=== PATIENT | female | born 1990 | race African-American/Black ===

== ENCOUNTER 2017-01-08 23:20 | Emergency (ER) | payer MEDICAID, OTHER ==
[~2017-01-08] VITALS: Ht 162.6 cm; Wt 163.3 kg
[~2017-01-08 23:20] MED LIST: ALBUTEROL SULF8.5 GM INH; ALBUTEROL2.5 MG/3 M HHN; AZITHROMYCIN250 MG ORAL; GUAIFENESIN-CO118 M1 ORAL; HYDROCHLOROTHIA25 MG ORAL; PREDNISONE20 MG ORAL; SINGULAIR10 MG ORAL; VASERETIC1 EA ORAL; ZITHROMAX250 MG ORAL; ZITHROMAX250 MG PO
[2017-01-08 23:40] VITALS: BP 161/104
[2017-01-08] MEDS ORDERED: HYDROmorphone 1mg/ml Carpuject IVP ONE (23:45)
[2017-01-09 00:17] LABS: BASOPHILS % (AUTO) 0.4 % (0.0-2.0); EOSINOPHILS % (AUTO) 0.2 % (0.0-3.0); LYMPHOCYTES % (AUTO) 23.2 % (20.0-45.0); MEAN CORPUSCULAR HEMOGLOBIN 25.7 PG (27.0-31.0); MEAN CORPUSCULAR HGB CONC 31.9 G/DL (32.0-36.0); MEAN CORPUSCULAR VOLUME 81 FL (80-99); MEAN PLATELET VOLUME 6.8 FL (6.5-10.1); MONOCYTES % (AUTO) 4.7 % (1.0-10.0); NEUTROPHILS % (AUTO) 71.5 % (45.0-75.0); PLATELET COUNT 350 K/UL (150-450); RED BLOOD COUNT 4.88 M/UL (4.20-5.40); RED CELL DISTRIBUTION WIDTH 14.6 % (11.6-14.8); WHITE BLOOD COUNT 12.9 K/UL (4.8-10.8)
[2017-01-09 00:17] LABS: APPEARANCE,URINE CLOUDY; KETONES,URINE 1+ (NEGATIVE); LEUKOCYTE ESTERASE ,URINE 3+ (NEGATIVE); NITRITE,URINE NEGATIVE (NEGATIVE); PH,URINE 5 (4.5-8.0); PROTEIN,URINE 2+ (NEGATIVE); UROBILINOGEN,URINE NORMAL MG/DL (0.0-1.0)
[2017-01-09 00:30] LABS: BACTERIA,URINE MODERATE /HPF; MUCUS,URINE MODERATE /LPF (NONE/OCC); RBC,URINE 40-60 /HPF (0 - 2); SQUAMOUS EPITHELIAL CELL,UR MODERATE /LPF (NONE/OCC); WBC,URINE 60-80 /HPF (0 - 2)
[2017-01-09 00:30] LABS: ALANINE AMINOTRANSFERASE 20 U/L (12-78); ALBUMIN/GLOBULIN RATIO 0.7 (1.0-2.7); ANION GAP 10 mmol/L (5-15); ASPARTATE AMINO TRANSFERASE 16 U/L (15-37); CALCIUM 9.5 MG/DL (8.5-10.1); CARBON DIOXIDE 25 MMOL/L (21-32); CHLORIDE 105 MMOL/L (98-107); CREATININE 1.2 MG/DL (0.55-1.30); GLOMERULAR FILTRATION RATE > 60 mL/min (>60); LIPASE 453 U/L (73-393); POTASSIUM 3.9 MMOL/L (3.5-5.1); SODIUM 140 MMOL/L (136-145); TOTAL PROTEIN 8.5 G/DL (6.4-8.2)
[2017-01-09 00:31] LABS: ICTOTEST NEGATIVE; TRICHOMONAS,URINE FEW /HPF
--- NOTE | 2017-01-09 01:07 | Emergency Room Report ---
History of Present Illness General Chief Complaint: Abdominal Pain Source: Patient Present Illness HPI Is a 26-year-old female with no significant past medical history. She presents with chief complaint of nominal pain. Onset today. Pain is right upper quadrant going to her back. She thought this may have been secondary to taking Tylenol #3 for her tooth infection. Has nausea but no vomiting. No diarrhea. Pain is 9/10. Worse with eating. Denies any other complaint. Allergies: Coded Allergies: IBUPROFEN (Verified Allergy, Mild, sob, 11/14/12) NAPROXEN (Verified Allergy, Mild, sob, 11/14/12) PENICILLINS (Verified Allergy, Mild, rash, 11/14/12) Patient History Past Medical History: see triage record, old chart reviewed Past Surgical History: none Pertinent Family History: none Social History: Denies: smoking Last Menstrual Period: 2 weeks ago Now: No Immunizations: other Reviewed Nursing Documentation: PMH: Agreed, PSxH: Agreed Nursing Documentation-PMH Hx Cardiac Problems: No - ULCERS, CHRONIC HEADACHE Hx Hypertension: Yes Hx Asthma: Yes Hx Gastrointestinal Problems: Yes - Ulcer. polycystic ovarian syndrome Review of Systems Eye: Denies: eye pain, blurred vision ENT: Denies: ear pain, nose congestion, throat swelling Respiratory: Denies: cough, shortness of breath Cardiovascular: Denies: chest pain, palpitations Gastrointestinal: Reports: abdominal pain, nausea, Denies: diarrhea, vomiting Musculoskeletal: Denies: back pain, joint pain Skin: Denies: rash Neurological: Denies: headache, numbness Endocrine: Denies: increased thirst, increased urine Hematologic/Lymphatic: Denies: easy bruising All Other Systems: negative except mentioned in HPI Physical Exam Vital Signs Date Time Temp Pulse Resp B/P (MAP) Pulse Ox O2 Delivery O2 Flow Rate FiO2 01/08/17 23:25 98.4 111 20 150/103 98 Room Air vitals with tachycardia Sp02 EP Interpretation: reviewed, normal General Appearance: well appearing, no apparent distress, alert, obese Head: normocephalic, atraumatic Eyes: bilateral eye PERRL, bilateral eye EOMI ENT: hearing grossly normal, normal pharynx, other - no abscess on dental exam Neck: full range of motion, supple, no meningismus Respiratory: chest non-tender, lungs clear, normal breath sounds Cardiovascular #1: regular rate, rhythm, no murmur Gastrointestinal: normal bowel sounds, no mass, no organomegaly, no bruit, non- distended, tenderness - Right upper quadrant Musculoskeletal: back normal, gait/station normal, normal range of motion Psychiatric: mood/affect normal Skin: warm/dry Medical Decision Making Diagnostic Impression: Primary Impression: Cholelithiasis Qualified Codes: K80.20 - Calculus of gallbladder without cholecystitis without obstruction Additional Impression: Trichomonas vaginitis ER Course Patient with right upper quadrant pain. Pain is controlled now. She never had any pain in the left upper quadrant. Labs unremarkable. No evidence of acute abdomen. We'll discharge home. Trichomonas treated. She is currently taking clindamycin for her dental pain. Will hold off further treatment for UTI. Last Vital Signs Date Time Temp Pulse Resp B/P (MAP) Pulse Ox O2 Delivery O2 Flow Rate FiO2 01/08/17 23:40 98.4 94 20 161/104 98 Room Air Status: improved Disposition: HOME, SELF-CARE Condition: Stable Scripts Hydrocodone/Acetaminophen 5-325* (HYDROCODONE/ACETAMINOPHEN 5-325*) 1 Each Tablet 1 TAB ORAL Q6H Y for For Pain, #20 TAB 0 Refills Prov: NADIYA WELCH M.D. 01/09/17 Referrals: [facility],REFERRING (PCP) Additional Instructions: Continue with antibiotics. Have your partner is treated for STD. Followup with your DrLisandro in 2-3 days. Return if symptom worsen. NADIYA WELCH M.D. Jan 09, 2017 01:07
[2017-01-09] MEDS ORDERED: cefTRIAXone 1 GM in NS 55 ML IVPB ONE (01:15)
[2017-01-09 01:40] VITALS: BP 155/81
[2017-01-09] MEDS ORDERED: metroNIDAZOLE 500mg tab ORAL ONE (02:00)
[2017-01-09] MEDS ORDERED: HYDROCODON-ACE1 EA15 ORAL (02:01)
[2017-01-09 02:09] VITALS: BP 155/81
--- NOTE | 2017-01-09 08:47 | Diagnostic Imaging Report ---
Indication: Abdominal pain Technique: Spiral acquisitions obtained through the abdomen and pelvis. No oral contrast utilized, per emergency room physician request No IV contrast utilized, per emergency room physician request. Multiplanar reconstructions were generated. Total dose length product 1374 mGycm. CTDIvol(s) 26 mGy. Dose reduction achieved using automated exposure control Comparison: Contrast study dated 02/09/2010 Findings: The appendix is normal. No evidence of diverticulosis or diverticulitis. No small bowel distention. No free or loculated intraperitoneal air or fluid is evident. Distal esophagus, stomach, duodenum are unremarkable. Again demonstrated is a tiny fat-containing umbilical hernia. Nonspecific prominent right lower quadrant lymph nodes are again demonstrated, unchanged Lack of IV contrast limits assessment of the solid organs. Gallbladder contents are slightly higher in attenuation than on the previous study. The liver, bile ducts, pancreas, spleen, adrenals, kidneys are all unremarkable. There is a small accessory splenule. No retroperitoneal or mesenteric mass or adenopathy. No pelvic mass or adenopathy. The included lung bases are clear. The bones are unremarkable Impression: Possible gallbladder sludge Otherwise essentially unremarkable exam. Incidental finding of tiny fat-containing umbilical hernia This agrees with the preliminary interpretation provided overnight by [facility]erad[facility] service. The CT scanner at [facility] is accredited by the [employer] and the scans are performed using protocols designed to limit radiation exposure to as low as reasonably achievable to attain images of sufficient resolution adequate for diagnostic evaluation.
== END 2017-01-09 02:09 | disposition home or self-care (01) ==
LOC: EMR 23:48
DX: K80.20 Calculus of gallbladder without cholecystitis without obstruction (principal); A59.01 Trichomonal vulvovaginitis; R10.11 Right upper quadrant pain; Z88.6 Allergy status to analgesic agent; Z88.0 Allergy status to penicillin; I10 Essential (primary) hypertension; J45.909 Unspecified asthma, uncomplicated; R11.0 Nausea; R51 Headache
CPT/HCPCS: 36415; 74176; 80053; 81003; 81025; 83690; 85025; 87086; 96361; 96374; 96375; 99284; J0696; J1170; J2405

== ENCOUNTER 2017-12-26 19:40 | Emergency (ER) | payer MEDICAID, OTHER ==
[~2017-12-26] VITALS: Ht 162.6 cm; Wt 163.3 kg
[~2017-12-26 19:40] MED LIST changes: +HYDROCODON-ACE1 EA15 ORAL
[2017-12-26 19:55] VITALS: BP 149/84
--- NOTE | 2017-12-26 20:12 | Emergency Room Report ---
History of Present Illness General Chief Complaint: Flu Like Symptoms Source: Patient Present Illness HPI Patient present with complaints of cough sore throat runny nose symptoms ongoing since Friday Patient also has some back pain with increased cough denies any chest pain patient reports that she thinks her asthma might be flaring up as well Denies any dysuria frequency denies any posterior neck pain denies any photophobia denies any recent travel Allergies: Coded Allergies: IBUPROFEN (Verified Allergy, Mild, sob, 11/14/12) NAPROXEN (Verified Allergy, Mild, sob, 11/14/12) PENICILLINS (Verified Allergy, Mild, rash, 11/14/12) Patient History Past Medical History: see triage record Pertinent Family History: none Last Menstrual Period: 12/11/17 Now: No Reviewed Nursing Documentation: PMH: Agreed; PSxH: Agreed Nursing Documentation-PMH Past Medical History: No History, Except For Hx Cardiac Problems: No - ULCERS, CHRONIC HEADACHE Hx Hypertension: Yes Hx Asthma: Yes Hx Gastrointestinal Problems: Yes - Ulcer. polycystic ovarian syndrome, gallstones Review of Systems All Other Systems: negative except mentioned in HPI Physical Exam Vital Signs Date Time Temp Pulse Resp B/P (MAP) Pulse Ox O2 Delivery O2 Flow Rate FiO2 12/26/17 19:45 98.6 113 18 149/84 98 Room Air 98.6 Sp02 EP Interpretation: reviewed, normal General Appearance: well appearing, no apparent distress Head: normocephalic, atraumatic Eyes: bilateral eye PERRL, bilateral eye EOMI ENT: hearing grossly normal, TMs + canals normal, uvula midline, pharyngeal erythema Neck: full range of motion, supple, no meningismus, no bony tend Respiratory: lungs clear, normal breath sounds, no rhonchi, no respiratory distress, no retraction, no accessory muscle use Cardiovascular #1: normal peripheral pulses, regular rate, rhythm, no edema, no gallop, no JVD, no murmur Gastrointestinal: normal bowel sounds, non tender, soft, no mass, no organomegaly, non-distended, no guarding, no hernia, no pulsatile mass, no rebound Genitourinary: no CVA tenderness Musculoskeletal: normal inspection Neurologic: oriented x3, responsive, 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, motor strength/ tone normal, sensory intact Psychiatric: mood/affect normal Skin: normal color, no rash, warm/dry, palpation normal Lymphatic: normal inspection, no adenopathy Medical Decision Making Diagnostic Impression: Primary Impression: Pharyngitis ER Course Patient presents with symptoms consistent with upper respiratory infection given the throat infection as well however patient does have findings consistent with pharyngitis as well Given the duration of symptoms the discomfort Patient had received breathing treatment here feeling significantly improved And will be discharged for close outpatient follow-up Last Vital Signs Date Time Temp Pulse Resp B/P (MAP) Pulse Ox O2 Delivery O2 Flow Rate FiO2 12/26/17 19:45 98.6 113 18 149/84 98 Room Air 98.6 Status: improved Disposition: HOME, SELF-CARE Condition: Stable Scripts Dextromethorphan Hb/Doxylamine (ROBITUSSIN NIGHTTIME COUGH DM) 237 Ml Liquid 10 ML PO QHS for 5 Days, ML Prov: Dileep Santos DO 12/26/17 Acetaminophen (Tylenol) 325 Mg Tablet 650 MG ORAL Q8HR PRN for Prn Pain/Headache/Temp > 101, #15 TAB 0 Refills Prov: Dileep Santos DO 12/26/17 Azithromycin (ZITHROMAX) 500 Mg Tablet 500 MG ORAL DAILY for 5 Days, TAB Prov: Dileep Santos DO 12/26/17 Additional Instructions: Patient is provided with the discharge instructions notified to follow up with primary doctor in the next 2-3 days otherwise return to the er with any worsening symptoms. Please note that this report is being documented using [employer] technology. This can lead to erroneous entry secondary to incorrect interpretation by the dictating instrument. Dileep Santos DO Dec 26, 2017 20:12
[2017-12-26] MEDS ORDERED: Albuterol ud Inhalation HHN ONE (20:15)
[2017-12-26] MEDS ORDERED: Ipratropium 0.02% Inh Soln 2.5ml UD HHN ONE (20:15)
[2017-12-26] MEDS ORDERED: TYLENOL325 MG ORAL (20:23)
[2017-12-26] MEDS ORDERED: ROBITUSSIN NIG237 ML PO (20:23)
[2017-12-26] MEDS ORDERED: ZITHROMAX500 MG ORAL (20:23)
[2017-12-26 20:32] VITALS: BP 135/76
== END 2017-12-26 20:31 | disposition home or self-care (01) ==
LOC: EMR 20:21
DX: J02.9 Acute pharyngitis, unspecified (principal); I10 Essential (primary) hypertension; J45.909 Unspecified asthma, uncomplicated; Z88.6 Allergy status to analgesic agent; Z88.0 Allergy status to penicillin
CPT/HCPCS: 94640; 94664; 99284

== ENCOUNTER 2018-06-26 21:13 | Emergency (ER) | payer MEDICAID ==
[~2018-06-26] VITALS: Ht 165.1 cm; Wt 156.0 kg
[~2018-06-26 21:13] MED LIST changes: +ROBITUSSIN NIG237 ML PO; +TYLENOL325 MG ORAL; +ZITHROMAX500 MG ORAL
[2018-06-26] MEDS ORDERED: METFORMIN ER G500 MG PO (21:24)
[2018-06-26] MEDS ORDERED: OXYBUTYNIN CHLOR5 M1 ORAL (21:24)
[2018-06-26 21:25] VITALS: BP 161/93
--- NOTE | 2018-06-26 21:25 | NUR ---
ED Nurse Note: Pt arrived ED from home, c/o a blister on her lower lip for few days as well as back pain and possible UTI. Pt is A/O X 4. Vital signs stable at this time, waiting for orders.
[2018-06-26] MEDS ORDERED: Cephalexin 500mg cap ORAL ONE (21:45)
[2018-06-26 21:46] LABS: APPEARANCE,URINE CLEAR; BILIRUBIN, URINE NEGATIVE (NEGATIVE); COLOR,URINE PALE YELLOW; GLUCOSE, URINE (UA) NEGATIVE (NEGATIVE); KETONES,URINE NEGATIVE (NEGATIVE); LEUKOCYTE ESTERASE ,URINE 1+ (NEGATIVE); NITRITE,URINE NEGATIVE (NEGATIVE); PH,URINE 5 (4.5-8.0); PROTEIN,URINE NEGATIVE (NEGATIVE); UROBILINOGEN,URINE NORMAL MG/DL (0.0-1.0)
--- NOTE | 2018-06-26 21:50 | NUR ---
ED Nurse Note: ERMD notified regarding urine result, negative.
[2018-06-26] MEDS ORDERED: CEPHALEXIN500 MG ORAL (22:32)
[2018-06-26] MEDS ORDERED: DIPHENHYDRAMINE25 M1 ORAL (22:32)
[2018-06-26 22:35] VITALS: BP 161/93
--- NOTE | 2018-06-26 22:35 | NUR ---
ER DISCHARGE NOTE: Patient is cleared to be discharged per Dr. Chan. Pt is A/O x4 on room air with stable vital signs. Pt was given D/C instructions was able to verbalize understanding. Pt ID band removed . Pt is able to ambulate with steady gait and took all belongings.
--- NOTE | 2018-06-27 00:43 | Emergency Room Report ---
History of Present Illness General Chief Complaint: Allergic Reaction Source: Patient Present Illness HPI 27 yo F presents to ED c/o lip swelling. started yesterday. pain is dull, 5/10 nonradating. patient thinks she has an infection. denies tongue swelling, throat swelling. no rash. no other aggravating or relieving factors. denies any other associated symptoms. Allergies: Coded Allergies: IBUPROFEN (Verified Allergy, Mild, sob, 11/14/12) NAPROXEN (Verified Allergy, Mild, sob, 11/14/12) PENICILLINS (Verified Allergy, Mild, rash, 11/14/12) Patient History Past Medical History: HTN, asthma Past Surgical History: none Pertinent Family History: none Social History: Denies: smoking, alcohol use, drug use Last Menstrual Period: 06/19/2018 Now: No Immunizations: UTD Reviewed Nursing Documentation: PMH: Agreed; PSxH: Agreed Nursing Documentation-PMH Past Medical History: No History, Except For Hx Cardiac Problems: No - ULCERS, CHRONIC HEADACHE Hx Hypertension: Yes Hx Asthma: Yes Hx Gastrointestinal Problems: Yes - Ulcer. polycystic ovarian syndrome, gallstones Review of Systems All Other Systems: negative except mentioned in HPI Physical Exam Vital Signs Date Time Temp Pulse Resp B/P (MAP) Pulse Ox O2 Delivery O2 Flow Rate FiO2 06/26/18 21:19 98.4 99 16 169/101 98 Room Air Sp02 EP Interpretation: reviewed, normal General Appearance: no apparent distress, alert, GCS 15, non-toxic Head: normocephalic ENT: hearing grossly normal, normal pharynx, no angioedema, normal voice, other - lower lip swelling. no fluctuance or discharge Neck: full range of motion, supple, supple/symm/no masses Respiratory: normal inspection Cardiovascular #1: normal inspection Gastrointestinal: normal inspection Rectal: deferred Genitourinary: no CVA tenderness Musculoskeletal: normal inspection Neurologic: alert, oriented x3, responsive, motor strength/tone normal, sensory intact, speech normal Psychiatric: judgement/insight normal, memory normal, mood/affect normal, no suicidal/homicidal ideation Skin: normal inspection Lymphatic: normal inspection Medical Decision Making Diagnostic Impression: Primary Impression: Lip swelling ER Course Hospital Course 27-year-old female presents to ED with pain, swelling to lip Differential diagnoses include: Cellulitis, dermatitis, insect bite, abscess Clinical course Patient placed on stretcher. After initial history, physical exam reveals a female in no acute distress. On exam there is swelling to lower lip. No stridor. No tongue swelling. No urticaria or hives. Consideration for cellulitis versus allergic reaction. UA unremarkable. Given Keflex and Benadryl in ED discussed findings with patient. We'll treat as mild cellulitis. Safe for discharge with close outpatient followup Patient states she has a PMD Diagnosis - lip swelling stable and discharged to home with prescription for Benadryl, Keflex. Instructed to followup with PMD. Instructed return to ED if symptoms recur or worsen Labs Test 06/26/18 21:35 Urine Color Pale yellow Urine Appearance Clear Urine pH 5 (4.5-8.0) Urine Specific Nichols 1.015 (1.005-1.035) Urine Protein Negative (NEGATIVE) Urine Glucose (UA) Negative (NEGATIVE) Urine Ketones Negative (NEGATIVE) Urine Blood 1+ (NEGATIVE) Urine Nitrite Negative (NEGATIVE) Urine Bilirubin Negative (NEGATIVE) Urine Urobilinogen Normal MG/DL (0.0-1.0) Urine Leukocyte Esterase 1+ (NEGATIVE) Urine RBC 0-2 /HPF (0 - 2) Urine WBC 0-2 /HPF (0 - 2) Urine Squamous Epithelial Cells Moderate /LPF (NONE/OCC) Urine Bacteria Few /HPF (NONE) Urine HCG, Qualitative Negative (NEGATIVE) Last Vital Signs Date Time Temp Pulse Resp B/P (MAP) Pulse Ox O2 Delivery O2 Flow Rate FiO2 06/26/18 22:35 98.2 82 16 161/93 98 Room Air Status: improved Disposition: HOME, SELF-CARE Condition: Stable Scripts Cephalexin* (KEFLEX*) 500 Mg Capsule 500 MG ORAL EVERY 6 HOURS for 7 Days, CAP Prov: Bryce Chan MD 06/26/18 Diphenhydramine Hcl* (DIPHENHYDRAMINE HCL*) 25 Mg Capsule 25 MG ORAL Q6H PRN for Itching, #30 CAP 0 Refills Prov: Bryce Chan MD 06/26/18 Patient Instructions: Cellulitis, [id number] Bryce Chan MD Jun 27, 2018 00:43
== END 2018-06-26 22:35 | disposition home or self-care (01) ==
LOC: EMR 21:40
DX: R60.0 Localized edema (principal); I10 Essential (primary) hypertension; J45.909 Unspecified asthma, uncomplicated; Z88.0 Allergy status to penicillin; Z88.6 Allergy status to analgesic agent
CPT/HCPCS: 81003; 81025; 99283